=== PATIENT | female | born 1990 | race African-American/Black ===

== ENCOUNTER 2024-03-13 15:51 | Inpatient (IN) | payer BC, OTHER ==
[2024-03-13] MEDS ORDERED: hydrALAZINE 20 MG/ML VIAL SLOW IVP PRN ×2 (16:12→17:12)
[2024-03-13 17:00] LABS: Fetal Membranes Rupture RUPTURE DETECTED (No Rupture)
[2024-03-13] MEDS ORDERED: Ondansetron PF 4 MG/2 ML Vial IVP PRN (17:12)
[2024-03-13] MEDS ORDERED: Promethazine HCl 25 MG/ML VIAL IM PRN (17:12)
[2024-03-13 17:51] LABS: Hematocrit 26.2 % (34.9-44.5); Hemoglobin 8.9 g/dL (12.0-15.5); Mean Platelet Volume 10.2 fL (7.4-10.4); Platelet Count 320 10x3/uL (150-450); RBC Distribution Width 13.5 % (11.5-14.5); White Blood Cell (WBC) Count 14.2 10x3/uL (3.5-10.5)
[2024-03-13] MEDS: Lactated Ringer's 1,000 ML IV SCH (18:12)
[2024-03-13] MEDS: Betamet Acet/Betamet Na Ph 30 MG/5 ML VIAL IM SCH (18:19)
[2024-03-13 18:20] LABS: HBsAg Index 0.18 S/CO (0-0.99); Hep B Surf Ag - L&D Non-Reactive S/CO (NonReactive)
[2024-03-13 18:21] LABS: Syphilis Antibody Nonreactive (Nonreactive); Syphilis Antibody Index 0.05 S/CO (<1.00 Non-Reactive)
[2024-03-13 18:55] LABS: Amphetamine Not Detected (NotDetected); Barbiturates Screen Not Detected (NotDetected); Benzodiazepine Screen Not Detected (NotDetected); Cocaine Metabolite Screen Not Detected (NotDetected); Methadone Not Detected (NotDetected); Methamphetamine Not Detected (NotDetected); Opiate Screen Not Detected (NotDetected); Oxycodone Screen Not Detected (NotDetected); Phencyclidine (PCP) Not Detected (NotDetected); THC/Cannabinoid Screen Detected (NotDetected); Tricyclic Screen Not Detected (NotDetected)
[2024-03-13] MEDS ORDERED: CEFAZOLIN 1 GM in Sodium Chloride 0.9% 100 ML IVPB SCH (22:00)
[2024-03-14] MEDS: Ampicillin 2 GM in Sodium Chloride 0.9% 100 ML IVPB SCH (02:02)
[2024-03-15] MEDS: Docusate 100 MG CAP PO PRN (00:02)
[2024-03-15] MEDS: Docusate 100 MG CAP PO SCH (09:13)
[2024-03-15] MEDS: Ferrous Sulfate 325 MG TAB PO SCH (19:39)
[2024-03-15] MEDS: AMOXicillin 250 MG CAP PO SCH (20:09)
[2024-03-16] MEDS: Azithromycin 250 MG TAB PO SCH (06:09)
[2024-03-17] MEDS: Polyethylene Glycol 3350 17 GM Packet PO PRN (10:58)
[2024-03-17] MEDS: Milk Of Magnesia 30 ML UDCUP PO SCH (17:16)
[2024-03-21] MEDS ORDERED: Docusate 100 MG CAP ONE (21:11)
[2024-03-21] MEDS: Oxytocin 10 UNITS/ML VIAL ONE (21:21)
[2024-03-22] MEDS ORDERED: Ferrous Sulfate 325 MG TAB ONE (10:11)
[2024-03-22] MEDS ORDERED: Docusate 100 MG CAP ONE (10:11)
[2024-03-23] MEDS: AMOXicillin 250 MG CAP PO SCH (14:52)
[2024-03-23] MEDS ORDERED: AMOXicillin 250 MG CAP ONE (20:54)
[2024-03-25] MEDS: Prenatal Vitamin 1 TAB PO SCH (08:38)
[2024-03-26] MEDS: Acetaminophen 500 MG TAB PO SCH (11:09)
[2024-03-26] MEDS: Lactated Ringer's 1,000 ML IV SCH (11:10)
[2024-04-06] MEDS: Acetaminophen 500 MG TAB PO PRN (20:46)
[2024-04-08 05:30] LABS: Hematocrit 28.3 % (34.9-44.5); Hemoglobin 9.8 g/dL (12.0-15.5); Mean Corpuscular HGB CONC 34.6 g/dL (32.0-36.0); Mean Corpuscular Hemoglobin 33.6 pg (27.0-33.0); Mean Corpuscular Volume 96.9 fL (81.6-98.3); Mean Platelet Volume 9.5 fL (7.4-10.4); Platelet Count 316 10x3/uL (150-450); RBC Distribution Width 12.9 % (11.5-14.5); Red Blood Cell (RBC) Count 2.92 10x6/uL (3.90-5.03)
[2024-04-08 05:47] LABS: ALT (SGPT) 15 U/L (8-55); AST (SGOT) 10 U/L (5-34); Albumin 2.6 g/dL (3.5-5.0); Alkaline Phosphatase 105 U/L (40-110); Anion Gap 12 mmol/L (10-20); BUN (Urea Nitrogen) 10 mg/dL (7.0-18.7); Bilirubin, Total Less than 0.2 mg/dL (0.2-1.2); Calc. Creatinine Clearance 147 mL/min (70-130); Carbon Dioxide 18 mmol/L (22-29); Chloride 110 mmol/L (98-107); Estimated GFR 119; Globulin 3.6 g/dL (2.4-3.5); Glucose 87 mg/dL (70-105); Potassium 3.9 mmol/L (3.5-5.1); Protein, Total 6.2 g/dL (6.0-8.3); Sodium 136 mmol/L (136-145)
[2024-04-08 06:08] LABS: Syphilis Antibody Nonreactive (Nonreactive); Syphilis Antibody Index 0.06 S/CO (<1.00 Non-Reactive)
[2024-04-08 06:35] LABS: HIV (1/2) Antibody/Antigen Non-Reactive (NonReactive); HIV 1/2 INDEX 0.16 S/CO (<1.00)
[2024-04-13 14:53] VITALS: BMI 31.4
[2024-04-21] MEDS: Benzocaine/Menthol 1 LOZ LOZ PO PRN (08:46)
[2024-04-22] MEDS: BENZOCAINE/MENTHOL/ZINC CHLOR 5.1 GM TUBE TOP PRN (17:49)
[2024-04-23] MEDS: AMOXicillin 250 MG CAP PO SCH ×2 (10:15→16:43)
[2024-04-27 10:19] LABS: Hematocrit 31.5 % (34.9-44.5); Hemoglobin 10.8 g/dL (12.0-15.5); Mean Corpuscular HGB CONC 34.3 g/dL (32.0-36.0); Mean Corpuscular Hemoglobin 32.7 pg (27.0-33.0); Mean Corpuscular Volume 95.5 fL (81.6-98.3); Mean Platelet Volume 9.7 fL (7.4-10.4); Platelet Count 306 10x3/uL (150-450); RBC Distribution Width 12.4 % (11.5-14.5)
[2024-04-27] MEDS: Magnesium Sulfate 20 gm/500 ml 4 GM/100 ML BAG IVPB ONE (10:57)
[2024-04-27] MEDS: Betamet Acet/Betamet Na Ph 30 MG/5 ML VIAL IM SCH (11:04)
[2024-04-27] MEDS ORDERED: Magnesium Sulfate 20 gm/500 ml 20 GM/500 ML BAG IVPB PRN (12:15)
[2024-04-27] MEDS: Betamet Acet/Betamet Na Ph 30 MG/5 ML VIAL ONE (12:18)
[2024-04-27] MEDS: Magnesium Sulfate 20 gm/500 ml 20 GM/500 ML BAG ONE (12:18)
[2024-04-27 14:06] VITALS: BMI 30.4
[2024-04-27] MEDS: CEFAZOLIN 2 GM VIAL ONE (16:01)
[2024-04-27] MEDS: Azithromycin 500 MG VIAL ONE (16:01)
[2024-04-27] MEDS ORDERED: Naloxone HCl 0.4 mg/ml Vial IVP PRN ×2 (18:46)
[2024-04-27] MEDS ORDERED: Promethazine HCl 25 MG/ML VIAL IM PRN ×2 (18:46→22:06)
[2024-04-27] MEDS ORDERED: Ketorolac Tromethamine 30 MG (1 mL) VIAL IVP PRN (18:46)
[2024-04-27] MEDS ORDERED: HYDROmorphone 0.5 MG/0.5 ML SYRINGE SLOW IVP PRN (18:46)
[2024-04-27] MEDS ORDERED: Moisturizing Cream (Eucerin) 113 GM JAR TOP PRN (18:46)
[2024-04-27] MEDS ORDERED: Meperidine HCl/PF 25 MG (1 mL) VIAL SLOW IVP PRN (18:46)
[2024-04-27] MEDS ORDERED: Naloxone HCl 0.4 mg/ml Vial IV PRN (18:46)
[2024-04-27] MEDS ORDERED: Ondansetron PF 4 MG/2 ML Vial IVP PRN ×3 (18:46→22:06)
[2024-04-27] MEDS ORDERED: Communication Order-Pharmacy FS SCH (19:00)
[2024-04-27] MEDS: Ondansetron PF 4 MG/2 ML Vial ONE (19:09)
[2024-04-27] MEDS: Oxytocin 10 UNITS/ML VIAL ONE ×2 (19:09→19:10)
[2024-04-27] MEDS: Dexamethasone 10 MG/ML VIAL ONE (19:09)
[2024-04-27] MEDS: Morphine PF 10 MG/10 ML VIAL ONE (19:09)
[2024-04-27] MEDS: fentaNYL 50 mcg/mL 1 mL Vial ONE ×2 (19:09→20:10)
[2024-04-27] MEDS: ePHEDrine Sulfate 50 MG/10 ML VIAL ONE (19:10)
[2024-04-27] MEDS: PHENYLEPHRINE-NS 100 MCG/ML 10 ML SYRINGE ONE (19:10)
[2024-04-27] MEDS: fentaNYL 50 mcg/mL 1 mL Vial SLOW IVP PRN (19:14)
[2024-04-27] MEDS: Ketorolac Tromethamine 30 MG (1 mL) VIAL IVP SCH (20:00)
[2024-04-27] MEDS ORDERED: Bisacodyl 10 MG SUPP PR PRN (22:06)
[2024-04-27] MEDS ORDERED: diphenhydrAMINE 25 MG CAP PO PRN (22:06)
[2024-04-27] MEDS ORDERED: hydrALAZINE 20 MG/ML VIAL SLOW IVP PRN (22:06)
[2024-04-27] MEDS ORDERED: Lanolin Ointment 7 GM TUBE TOP PRN (22:06)
[2024-04-27] MEDS ORDERED: Boostrix 0.5 ML (Tdap) VIAL (>/=7 yrs of age) IM ONE (22:06)
[2024-04-27] MEDS ORDERED: Meperidine HCl/PF 25 MG (1 mL) VIAL IM PRN (22:06)
[2024-04-27] MEDS: diphenhydrAMINE 50 MG/ML VIAL IVP PRN (22:17)
[2024-04-27] MEDS: Ferrous Sulfate 325 MG TAB PO SCH (23:08)
[2024-04-27] MEDS: Docusate 100 MG CAP PO SCH (23:08)
[2024-04-28 04:06] LABS: Hemoglobin 10.1 g/dL (12.0-15.5); Mean Corpuscular HGB CONC 33.7 g/dL (32.0-36.0); Mean Corpuscular Hemoglobin 31.8 pg (27.0-33.0); Mean Corpuscular Volume 94.3 fL (81.6-98.3); Mean Platelet Volume 9.6 fL (7.4-10.4); Platelet Count 317 10x3/uL (150-450); Red Blood Cell (RBC) Count 3.18 10x6/uL (3.90-5.03); White Blood Cell (WBC) Count 21.6 10x3/uL (3.5-10.5)
[2024-04-28] MEDS: HYDROcodone/Acetaminophen 5/325 mg Tablet PO PRN ×2 (06:07→11:53)
[2024-04-28] MEDS: Prenatal Vitamin 1 TAB PO SCH (08:53)
[2024-04-28] MEDS: Ferrous Sulfate 325 MG TAB PO SCH (08:54)
[2024-04-28] MEDS: Docusate 100 MG CAP PO SCH (08:54)
[2024-04-28] MEDS: Simethicone Chewable 80 MG TAB PO PRN (16:47)
[2024-04-28] MEDS: Ibuprofen 800 MG TAB PO SCH (20:36)
[2024-04-29] MEDS: Sertraline 100 MG TAB PO SCH (16:53)
[2024-04-30] MEDS: Sertraline 100 MG TAB PO SCH (08:05)
[2024-04-30 08:20] VITALS: BP 136/84; TEMP 99
== END 2024-04-30 20:25 | disposition home or self-care (01) | DRG 786 ==
LOC: CSHLD/OP 15:51 → CSHLD 17:04 → CSHANTE 04-24 17:00 → CSHLD 04-27 09:10 → CSHPP 04-27 21:45
PROVIDERS: ADMIT Family Medicine; ATTEND Family Medicine
PROC: 10D00Z1 Extraction of Products of Conception, Low, Open Approach (ICD-10-PCS; principal; 2024-04-27)
DX: O42.113 Preterm premature rupture of membranes, onset of labor more than 24 hours following rupture, third trimester (principal); O60.14X0 Preterm labor third trimester with preterm delivery third trimester, not applicable or unspecified; O44.43 Low lying placenta NOS or without hemorrhage, third trimester; O34.211 Maternal care for low transverse scar from previous cesarean delivery; Z3A.24 24 weeks gestation of pregnancy; Z37.0 Single live birth; F41.9 Anxiety disorder, unspecified; O99.344 Other mental disorders complicating childbirth
CPT/HCPCS: 36415; 51702; 76815; 80053; 80306; 84112; 85027; 86780; 86850; 86900; 86901; 87340; 87389; 88307; 94660; 99285; J0290; J0456; J0702; J1100; J1200; J1885; J2274; J2405; J2590; J3010; J3475; J7120